=== PATIENT | female | born 1950 | race Caucasian/White ===

== ENCOUNTER 2022-06-01 12:38 | Observation (INO) | payer MEDICARE ==
[2022-06-01] MEDS ORDERED: ASPIRIN 81 MG PO STA (12:53)
[2022-06-01] MEDS ORDERED: NITROGLYCERIN OINT 1 INCH/GM PACKET TOPICAL STA (12:53)
--- NOTE | 2022-06-01 12:55 | ED ---
General Adult HPI - General Chief complaint: Chest Pain Stated complaint: chest pain, dizziness Time Seen by Provider: 06/01/22 12:49 Source: patient, RN notes reviewed Mode of arrival: wheelchair Limitations: no limitations - History of Present Illness Initial comments: Patient is a pleasant 71-year-old female presenting to the emergency department with concerns of chest discomfort. Onset of symptoms was close to 2 weeks ago. Symptoms are exertional. Symptoms become moderate at times however is mild now. Patient does describe discomfort as pressure. Patient had mild nausea and mild associated dyspnea today. Patient has felt lightheaded and near syncopal associate it with this. No diaphoresis. No history of similar symptoms previous sleep. Patient does have strong family history of cardiac disease. - Related Data Home Medications Medication Instructions Recorded Confirmed Atorvastatin [Lipitor] 20 mg PO PC-SUPPER 06/01/22 06/01/22 Escitalopram [Lexapro] 10 mg PO DAILY 06/01/22 06/01/22 Ibuprofen [Advil] 400 mg PO BID PRN 06/01/22 06/01/22 LORazepam [Ativan] 0.25 mg PO HS 06/01/22 06/01/22 Lansoprazole [Prevacid] 30 mg PO DAILY 06/01/22 06/01/22 Valsartan [Diovan] 160 mg PO DAILY 06/01/22 06/01/22 atenoloL [Tenormin] 25 mg PO DAILY 06/01/22 06/01/22 glipiZIDE [Glucotrol] 5 mg PO DAILY 06/01/22 06/01/22 metFORMIN HCL ER [Glucophage XR] 500 mg PO PC-SUPPER 06/01/22 06/01/22 Allergies Allergy/AdvReac Type Severity Reaction Status Date / Time azithromycin AdvReac Rash/Hives Verified 06/01/22 14:47 cephalexin [From Keflex] AdvReac Rash/Hives Verified 06/01/22 14:47 codeine AdvReac Rash/Hives Verified 06/01/22 14:47 Penicillins AdvReac Hand Verified 06/01/22 14:47 Swelling tetracycline AdvReac Rash/Hives Verified 06/01/22 14:47 Review of Systems ROS Statement: Those systems with pertinent positive or pertinent negative responses have been documented in the HPI. ROS Other: All systems not noted in ROS Statement are negative. Constitutional: Denies: fever Eyes: Denies: eye pain ENT: Denies: ear pain Respiratory: Denies: cough Cardiovascular: Reports: as per HPI, chest pain Endocrine: Reports: fatigue Gastrointestinal: Reports: nausea Genitourinary: Denies: dysuria Musculoskeletal: Denies: back pain Skin: Denies: rash Neurological: Denies: weakness Past Medical History Past Medical History: Diabetes Mellitus, Hyperlipidemia, Hypertension History of Any Multi-Drug Resistant Organisms: None Reported Past Surgical History: No Surgical Hx Reported Past Psychological History: Anxiety Smoking Status: Never smoker Past Alcohol Use History: None Reported Past Drug Use History: None Reported General Exam Limitations: no limitations General appearance: alert, in no apparent distress Head exam: Present: normocephalic Eye exam: Present: normal appearance Neck exam: Present: normal inspection Respiratory exam: Present: normal lung sounds bilaterally. Absent: chest wall tenderness Cardiovascular Exam: Present: regular rate, normal rhythm Expanded Peripheral pulses: 2+: Radial (R), Radial (L), Posterior Tibialis (R), Posterior Tibialis (L) GI/Abdominal exam: Present: soft. Absent: distended, tenderness Extremities exam: Present: normal inspection. Absent: pedal edema, calf tenderness Neurological exam: Present: alert Psychiatric exam: Present: normal affect, normal mood Skin exam: Present: normal color Course Vital Signs 06/01/22 12:43 Temperature 98.5 F Pulse Rate 79 Respiratory 16 Rate Blood Pressure 152/74 O2 Sat by Pulse 97 Oximetry EKG Findings - EKG Results: EKG: interpreted by ERMD (PVC present), sinus rhythm, normal axis, normal QRS, normal ST/T Medical Decision Making - Medical Decision Making Patient reevaluated. Patient and family updated. Case was discussed with Dr. angeles, who will admit covering hospital call. Was pt. sent in by a medical professional or institution? @ n Did you speak to anyone other than the patient for history? @Family help provide history Did you review nursing and triage notes? @Nursing notes reviewed and agree Were old charts reviewed? @ n Differential Diagnosis? @ MDM Differential Chest Pain: Stable Angina, Unstable Angina, STEMI, NSTEMI Aortic Dissection, Pneumothorax, Musculoskeletal, Esophageal Spasm GERD, Cholecystitis, Pancreatitis, Zoster This is not meant to be an all-inclusive list. EKG interpreted by me (3pts min.)? @Yes X-rays interpreted by me (1pt min.)? @ y CT interpreted by me (1pt min.)? @ n U/S interpreted by me (1pt. min.)? @ n What testing was considered but not performed? (CT, X-rays, U/S, labs)? Why? @ n What meds were considered but not given? Why? @Aspirin and Nitropaste ordered. Did you discuss the management of the patient with other professionals? @Discussed with Dr. lipscomb, who will admit. Did you reconcile home meds? @Not entered yet Was smoking cessation discussed for >3mins.? @ n Was critical care preformed (if so, how long)? @ n Were there social determinants of health that impacted care today? How? (Homelessness, low income, unemployed, alcoholism, drug addiction, transportation, low edu. Level, literacy, decrease access to med. care, halfway, rehab)? @ n Was there de-escalation of care discussed even if they declined? (Discuss DNR or withdrawal of care, Hospice)? @ n What co-morbidities impacted this encounter? (DM, HTN, Smoking, COPD, CAD, Cancer, CVA, Hep., AIDS, mental health diagnosis, sleep apnea, morbid obesity)? @Patient has strong family history of heart disease Was patient admitted / discharged? @Admitted Undiagnosed new problem with uncertain prognosis? @ Chest pain will need further evaluation Drug Therapy requiring intensive monitoring for toxicity (Heparin, Nitro, Insulin, Cardizem)? @ n Were any procedures done? @ n Diagnosis/symptom? @Chest pain Acute, or Chronic, or Acute on Chronic? @Acute Uncomplicated (without systemic symptoms) or Complicated (systemic symptoms)? @Uncomplicated Side effects of treatment? @ [none] Exacerbation, Progression, or Severe Exacerbation] @ [no] Poses a threat to life or bodily function? @Potential threat, will need further evaluation - Lab Data Result diagrams: 06/01/22 13:08 06/01/22 13:08 Lab Results 06/01/22 06/01/22 06/01/22 Range/Units 13:08 13:08 13:08 WBC 7.5 (3.8-10.6) k/uL RBC 4.19 (3.80-5.40) m/uL Hgb 12.5 (11.4-16.0) gm/dL Hct 37.6 (34.0-46.0) % MCV 89.7 (80.0-100.0) fL MCH 29.8 (25.0-35.0) pg MCHC 33.3 (31.0-37.0) g/dL RDW 14.2 (11.5-15.5) % Plt Count 178 (150-450) k/uL MPV 7.7 Neutrophils % 62 % Lymphocytes % 29 % Monocytes % 5 % Eosinophils % 2 % Basophils % 0 % Neutrophils # 4.6 (1.3-7.7) k/uL Lymphocytes # 2.2 (1.0-4.8) k/uL Monocytes # 0.4 (0-1.0) k/uL Eosinophils # 0.1 (0-0.7) k/uL Basophils # 0.0 (0-0.2) k/uL PT 10.4 (9.0-12.0) sec INR 1.0 (<1.2) APTT 22.5 (22.0-30.0) sec D-Dimer 0.89 H (<0.60) mg/L FEU Sodium 140 (137-145) mmol/L Potassium 4.2 (3.5-5.1) mmol/L Chloride 104 (98-107) mmol/L Carbon Dioxide 24 (22-30) mmol/L Anion Gap 12 mmol/L BUN 20 H (7-17) mg/dL Creatinine 0.67 (0.52-1.04) mg/dL Est GFR (CKD-EPI)AfAm >90 (>60 ml/min/1.73 sqM) Est GFR (CKD-EPI)NonAf >90 (>60 ml/min/1.73 sqM) Glucose 170 H (74-99) mg/dL Calcium 9.3 (8.4-10.2) mg/dL Magnesium 1.6 (1.6-2.3) mg/dL Total Bilirubin 0.4 (0.2-1.3) mg/dL AST 44 H (14-36) U/L ALT 37 H (4-34) U/L Alkaline Phosphatase 63 (38-126) U/L Troponin I (0.000-0.034) ng/mL Total Protein 6.8 (6.3-8.2) g/dL Albumin 3.8 (3.5-5.0) g/dL 06/01/22 Range/Units 13:08 WBC (3.8-10.6) k/uL RBC (3.80-5.40) m/uL Hgb (11.4-16.0) gm/dL Hct (34.0-46.0) % MCV (80.0-100.0) fL MCH (25.0-35.0) pg MCHC (31.0-37.0) g/dL RDW (11.5-15.5) % Plt Count (150-450) k/uL MPV Neutrophils % % Lymphocytes % % Monocytes % % Eosinophils % % Basophils % % Neutrophils # (1.3-7.7) k/uL Lymphocytes # (1.0-4.8) k/uL Monocytes # (0-1.0) k/uL Eosinophils # (0-0.7) k/uL Basophils # (0-0.2) k/uL PT (9.0-12.0) sec INR (<1.2) APTT (22.0-30.0) sec D-Dimer (<0.60) mg/L FEU Sodium (137-145) mmol/L Potassium (3.5-5.1) mmol/L Chloride (98-107) mmol/L Carbon Dioxide (22-30) mmol/L Anion Gap mmol/L BUN (7-17) mg/dL Creatinine (0.52-1.04) mg/dL Est GFR (CKD-EPI)AfAm (>60 ml/min/1.73 sqM) Est GFR (CKD-EPI)NonAf (>60 ml/min/1.73 sqM) Glucose (74-99) mg/dL Calcium (8.4-10.2) mg/dL Magnesium (1.6-2.3) mg/dL Total Bilirubin (0.2-1.3) mg/dL AST (14-36) U/L ALT (4-34) U/L Alkaline Phosphatase (38-126) U/L Troponin I <0.012 (0.000-0.034) ng/mL Total Protein (6.3-8.2) g/dL Albumin (3.5-5.0) g/dL - Radiology Data Radiology results: report reviewed (Computed tomography scan negative for pulmonary embolism) Interpreted by me: Chest x-ray shows no acute process Disposition Clinical Impression: Chest pain Disposition: ADMITTED IP TO THIS HOSP Is patient prescribed a controlled substance at d/c from ED?: No Referrals: Simon Navarrete MD [Primary Care Provider] - 1-2 days Time of Disposition: 14:50
[2022-06-01 13:22] LABS: Basophils % (A) 0 %; Eosinophils # (A) 0.1 k/uL (0-0.7); Eosinophils % (A) 2 %; HCT 37.6 % (34.0-46.0); HGB 12.5 gm/dL (11.4-16.0); Lymphocytes # (A) 2.2 k/uL (1.0-4.8); Lymphocytes % (A) 29 %; MCH 29.8 pg (25.0-35.0); MCHC 33.3 g/dL (31.0-37.0); MCV 89.7 fL (80.0-100.0); Mean Platelet Volume 7.7; Monocytes # (A) 0.4 k/uL (0-1.0); Monocytes % (A) 5 %; Neutrophils # (A) 4.6 k/uL (1.3-7.7); Neutrophils % (A) 62 %; Platelet Count 178 k/uL (150-450); RBC 4.19 m/uL (3.80-5.40); RDW 14.2 % (11.5-15.5); WBC 7.5 k/uL (3.8-10.6)
[2022-06-01 13:34] LABS: ALT 37 U/L (4-34); AST 44 U/L (14-36); African American GFR (CKD) >90 (>60 ml/min/1.73 sqM); Albumin 3.8 g/dL (3.5-5.0); Alkaline Phosphatase 63 U/L (38-126); Anion Gap 12 mmol/L; Blood Urea Nitrogen 20 mg/dL (7-17); Calcium 9.3 mg/dL (8.4-10.2); Carbon Dioxide 24 mmol/L (22-30); Chloride 104 mmol/L (98-107); Glucose 170 mg/dL (74-99); Magnesium 1.6 mg/dL (1.6-2.3); Non-African American GFR(CKD) >90 (>60 ml/min/1.73 sqM); Potassium 4.2 mmol/L (3.5-5.1); Sodium 140 mmol/L (137-145); Total Bilirubin 0.4 mg/dL (0.2-1.3); Total Protein 6.8 g/dL (6.3-8.2)
[2022-06-01 13:41] LABS: Partial Thromboplastin Time 22.5 sec (22.0-30.0); Prothrombin Time 10.4 sec (9.0-12.0)
--- NOTE | 2022-06-01 13:46 | XR ---
EXAMINATION TYPE: XR chest 2V DATE OF EXAM: 06/01/2022 COMPARISON: NONE HISTORY: Chest Pain TECHNIQUE: Frontal and lateral views of the chest are obtained. FINDINGS: Scattered senescent parenchymal changes noted. No evidence for infiltrate. No evidence for atelectasis. Heart size is stable. Mediastinal structures are stable and grossly unremarkable. No evidence for hilar prominence. Degenerative changes dorsal spine. IMPRESSION: 1. No evidence for acute pulmonary disease.
--- NOTE | 2022-06-01 14:23 | CT ---
EXAMINATION TYPE: CT angio chest DATE OF EXAM: 06/01/2022 COMPARISON: None HISTORY: Chest pain, HTN, family cardiac hx. CT DLP: 362.2 mGycm CONTRAST: CT chest with contrast and 3D reconstruction with MIP imaging is performed with IV Contrast, patient injected with 100 mL of Isovue 370. Contrast-enhanced CT of the chest was performed through the course of the pulmonary arteries with charles g and mediastinal window settings submitted. 3D reconstruction with MIP imaging was also performed. PULMONARY ARTERIES: The pulmonary arteries and their major tributaries are patent. I do not see winston dence for sizable filling defect to suggest pulmonary embolic process. LUNGS: The lungs are clear and free of infiltrate. No evidence for atelectasis. No pulmonary nodule or mass is detected. No pleural effusion. MEDIASTINUM: Thoracic aorta is of normal caliber,however, evaluation is limited given timing of the contrast bolus. If there is concern for thoracic aortic pathology consider PETER. Correlate clinicall y . The heart is not enlarged. No evidence for mediastinal mass. No mediastinal lymph nodes greater than 1cm. HILAR STRUCTURES: No evidence for mass. No hilar lymph nodes greater than 1 cm. UPPER ABDOMEN: No significant abnormality is seen. IMPRESSION: 1. No evidence for Pulmonary embolism at this time.
[2022-06-01] MEDS ORDERED: NITROGLYCERIN SL TABS 0.4 MG TAB SUBLINGUAL PRN (14:52)
[2022-06-01] MEDS ORDERED: LORazepam 0.5 MG TAB PO PRN (15:17)
[2022-06-01] MEDS ORDERED: ATORVASTATIN 20 MG TAB PO SCH (18:30)
[2022-06-01] MEDS: NITROGLYCERIN OINT 1 INCH/GM PACKET TOPICAL SCH ×2 (18:35→23:19)
[2022-06-01] MEDS: HEPARIN SODIUM,PORCINE/PF 5,000 UNIT/0.5 ML SYRINGE SQ SCH (20:40)
[2022-06-01] MEDS ORDERED: ACETAMINOPHEN TAB 325 MG TAB PO PRN (20:56)
--- NOTE | 2022-06-01 21:17 | P.HPIM ---
History of Present Illness This is a pleasant 71 years old female with past medical history of hypertension, hyperlipidemia and diabetes mellitus Patient presents because of chest pain of one week duration, the middle of her chest going to the left about 4-5/10 in severity feels like aching and pressure associated with mild lightheadedness She has little shortness of breath but no coughing, no GI or urinary symptoms, she has some mild headache but no weakness or numbness. She denies smoking alcohol or illicit drugs. Her vitals are stable. Labs reviewed showing unremarkable CBC, BMP. Liver enzymes mildly elevated. D-dimer is slightly elevated at 0.89, CTA of the chest is negative for PE. EKG showing normal sinus rhythm at [address]-T changes patient was started on aspirin and emergency room. Review of Systems Review of systems CONSTITUTIONAL: No fever, no malaise, no fatigue. HEENT: No recent visual problems or hearing problems. Denied any sore throat. CARDIOVASCULAR: No orthopnea, PND, no palpitations, no syncope. PULMONARY: No shortness of breath, no cough, no hemoptysis. GASTROINTESTINAL: No diarrhea, no nausea, no vomiting, no abdominal pain. Normoactive bowel sounds. NEUROLOGICAL: No headaches, no weakness, no numbness. HEMATOLOGICAL: Denies any bleeding or petechiae. GENITOURINARY: Denies any burning micturition, frequency, or urgency. MUSCULOSKELETAL/RHEUMATOLOGICAL: Denies any joint pain, swelling, or any muscle pain. ENDOCRINE: Denies any polyuria or polydipsia. Past Medical History Past Medical History: Diabetes Mellitus, Hyperlipidemia, Hypertension History of Any Multi-Drug Resistant Organisms: None Reported Past Surgical History: No Surgical Hx Reported Past Psychological History: Anxiety Smoking Status: Never smoker Past Alcohol Use History: None Reported Past Drug Use History: None Reported Medications and Allergies Home Medications Medication Instructions Recorded Confirmed Type Atorvastatin [Lipitor] 20 mg PO PC-SUPPER 06/01/22 06/01/22 History Escitalopram [Lexapro] 10 mg PO DAILY 06/01/22 06/01/22 History Ibuprofen [Advil] 400 mg PO BID PRN 06/01/22 06/01/22 History LORazepam [Ativan] 0.25 mg PO HS 06/01/22 06/01/22 History Lansoprazole [Prevacid] 30 mg PO DAILY 06/01/22 06/01/22 History Valsartan [Diovan] 160 mg PO DAILY 06/01/22 06/01/22 History atenoloL [Tenormin] 25 mg PO DAILY 06/01/22 06/01/22 History glipiZIDE [Glucotrol] 5 mg PO DAILY 06/01/22 06/01/22 History metFORMIN HCL ER [Glucophage XR] 500 mg PO PC-SUPPER 06/01/22 06/01/22 History Allergies Allergy/AdvReac Type Severity Reaction Status Date / Time azithromycin AdvReac Rash/Hives Verified 06/01/22 14:47 cephalexin [From Keflex] AdvReac Rash/Hives Verified 06/01/22 14:47 codeine AdvReac Rash/Hives Verified 06/01/22 14:47 Penicillins AdvReac Hand Verified 06/01/22 14:47 Swelling tetracycline AdvReac Rash/Hives Verified 06/01/22 14:47 Physical Exam Vitals: Vital Signs Temp Pulse Resp BP Pulse Ox 06/01/22 12:43 98.5 F 79 16 152/74 97 Intake and Output 06/01/22 06/01/22 06/01/22 06:59 14:59 22:59 Other: Weight 92.986 kg GENERAL: The patient is alert and oriented x3, not in any acute distress. Well developed, well nourished. HEENT: Pupils are round and equally reacting to light. EOMI. No scleral icterus. No conjunctival pallor. Normocephalic, atraumatic. No pharyngeal erythema. No thyromegaly. CARDIOVASCULAR: S1 and S2 present. No murmurs, rubs, or gallops. PULMONARY: Chest is clear to auscultation, no wheezing or crackles. ABDOMEN: Soft, nontender, nondistended, normoactive bowel sounds. No palpable or ganomegaly. MUSCULOSKELETAL: No joint swelling or deformity. EXTREMITIES: No cyanosis, clubbing, or pedal edema. NEUROLOGICAL: Gross neurological examination did not reveal any focal deficits. SKIN: No rashes. no petechiae. Results CBC & Chem 7: 06/01/22 13:08 06/01/22 13:08 Labs: Abnormal Lab Results - Last 24 Hours (Table) 06/01/22 06/01/22 Range/Units 13:08 13:08 D-Dimer 0.89 H (<0.60) mg/L FEU BUN 20 H (7-17) mg/dL Glucose 170 H (74-99) mg/dL AST 44 H (14-36) U/L ALT 37 H (4-34) U/L Assessment and Plan Assessment: Chest pain, rule out cardiac causes Hypertension Diabetes mellitus Hyperlipidemia Obesity with BMI of 32.1 Plan: Continue with aspirin Cardiology consult Check echocardiogram Labs and medication were reviewed.. Continue same treatment. Continue with symptomatic treatment. Resume home medication. Monitor lytes and vitals. DVT and GI prophylaxis. Further recommendations as per clinical course of the patient DVT prophylaxis: Subcutaneous heparin GI Prophylaxis: Pepcid Prognosis is guarded
[2022-06-01] MEDS: FAMOTIDINE 20 MG/2 ML VIAL IV SCH (21:37)
[2022-06-02] MEDS: NITROGLYCERIN OINT 1 INCH/GM PACKET TOPICAL SCH ×2 (05:20→12:00)
[2022-06-02 07:47] VITALS: RESP 18; TEMP 98
[2022-06-02] MEDS ORDERED: atenoloL 25 MG TAB PO SCH (09:00)
[2022-06-02] MEDS ORDERED: glipiZIDE 5 MG TAB PO SCH (09:00)
[2022-06-02] MEDS ORDERED: ESCITALOPRAM 10 MG TAB PO SCH (09:00)
[2022-06-02] MEDS ORDERED: ASPIRIN 325 MG TAB PO SCH (09:00)
[2022-06-02] MEDS ORDERED: VALSARTAN 160 MG TAB PO SCH (09:00)
[2022-06-02 09:12] LABS: African American GFR (CKD) 102.5 (60.0-200.0); BUN/Creat Ratio 23.86 Ratio (12.00-20.00); Blood Urea Nitrogen 16.7 mg/dL (9.0-27.0); Calcium 9.3 mg/dL (8.7-10.3); Carbon Dioxide 26.2 mmol/L (20.0-27.5); Chloride 102 mmol/L (96-109); Chol/HDL Ratio 3.03 Ratio; Glucose 130 mg/dL (70-110); LDL Cholesterol,Calculated 39.4 mg/dL (0.0-131.0); Non-African American GFR(CKD) 88.4 (60.0-200.0); Potassium 4.1 mmol/L (3.5-5.5); Sodium 139 mmol/L (135-145)
--- NOTE | 2022-06-02 09:27 | P.CRDCN ---
History of Present Illness Consult date: 06/02/22 Consult reason: chest pain History of present illness: HISTORY OF PRESENT ILLNESS This is a 71-year-old female with no previous coronary artery disease history but follows with a tool room lathe operator at [facility] for hypertension, hyperlipidemia. Patient also has history of diabetes mellitus type 2, gastroesophageal reflux disease. Patient complains of pressure across her chest has been going on and off for the past couple weeks but now seems to always be there. Most severe area is left side of the sternal border. She sometimes has radiation up into the left side of her neck. Pain does not seem to worsen with exercise. Yesterday she was swimming in the pool and after she was done she was not feeling great but patient's description of symptoms is vague. She has very little chest discomfort at this time. She has a family medical history of 2 brothers having an [place] and CABG and father at age 57 from myocardial infarction. Mother also had cardiomegaly. Patient is a nonsmoker. She last saw her tool room lathe operator 3 months ago. Blood pressure 146/71, heart rate in the 60s and 70s. EKG normal sinus rhythm with PVC Chest x-ray no acute findings CTA of the chest negative for PE CBC is unremarkable. Troponin negative 3. Triglycerides 158, cholesterol 106, LDL 39, HDL 35. AST 44 and ALT 37 Home cardiac medications atenolol 25 mg daily, atorvastatin 20 mg with supper, valsartan 160 mg daily REVIEW OF SYSTEMS Constitutional: No fever, no chills. No weakness, fatigue or lethargy. EENT: No headache. No dizziness. Lungs: No shortness of breath, cough, no sputum production. No wheezing. Cardiovascular: Reports mild chest pain, no lower extremity edema. No palpitations. No paroxysmal nocturnal dyspnea. No orthopnea. No lightheadedness or dizziness. No syncopal episodes. Abdominal: No abdominal pain. No nausea, vomiting. No diarrhea. No constipation. No bloody or tarry stools. No loss of appetite. Genitourinary: No dysuria.. No urinary retention. Musculoskeletal: No myalgias. No muscle weakness, no gait dysfunction, no frequent falls. No back pain. No neck pain. Integumentary: No wounds, no lesions. No rash or pruritus. No unusual bruising. Neurologic: No aphasia. No facial droop. No change in mentation. No head injury. No headache. No paralysis. No paresthesia. Psychiatric: No depression. No anxiety. Endocrine: No abnormal blood sugars. PHYSICAL EXAMINATION Gen: This is a 71-year-old obese female. She is resting in bed appears to be comfortable and in no acute distress. VS: reviewed HEENT: Head is atraumatic, normocephalic. Pupils equal, round. Sclerae is anicteric. NECK: Supple. No JVD. No lymphadenopathy. No thyromegaly. LUNGS: Clear to auscultation. No wheezes or rhonchi. No intercostal retractions. HEART: Regular rate and rhythm. No murmur. ABDOMEN: Soft. Bowel sounds are present. No masses. No tenderness. EXTREMITIES: No pedal edema. No calf tenderness. NEUROLOGICAL: Patient is awake, alert and oriented x3. Cranial nerves 2 through 12 are grossly intact. ASSESSMENT Chest pain with negative troponins, acute coronary syndrome ruled out Hypertension Hyperlipidemia Diabetes mellitus type 2 Gastroesophageal reflux disease PLAN Obtain Cardiolite stress test today Obtain 2-D echocardiogram and Doppler study to assess cardiac structure and function If testing is within normal limits, patient will be cleared from cardiology for discharge home. Thank you kindly for this consultation. Nurse practitioner note has been reviewed, I agree with documented findings and plan of care. Patient was seen and examined. Past Medical History Past Medical History: Diabetes Mellitus, Hyperlipidemia, Hypertension History of Any Multi-Drug Resistant Organisms: None Reported Past Surgical History: No Surgical Hx Reported Past Psychological History: Anxiety Smoking Status: Never smoker Past Alcohol Use History: None Reported Past Drug Use History: None Reported Medications and Allergies Home Medications Medication Instructions Recorded Confirmed Type Atorvastatin [Lipitor] 20 mg PO PC-SUPPER 06/01/22 06/01/22 History Escitalopram [Lexapro] 10 mg PO DAILY 06/01/22 06/01/22 History Ibuprofen [Advil] 400 mg PO BID PRN 06/01/22 06/01/22 History LORazepam [Ativan] 0.25 mg PO HS 06/01/22 06/01/22 History Lansoprazole [Prevacid] 30 mg PO DAILY 06/01/22 06/01/22 History Valsartan [Diovan] 160 mg PO DAILY 06/01/22 06/01/22 History atenoloL [Tenormin] 25 mg PO DAILY 06/01/22 06/01/22 History glipiZIDE [Glucotrol] 5 mg PO DAILY 06/01/22 06/01/22 History metFORMIN HCL ER [Glucophage XR] 500 mg PO PC-SUPPER 06/01/22 06/01/22 History Allergies Allergy/AdvReac Type Severity Reaction Status Date / Time azithromycin AdvReac Rash/Hives Verified 06/01/22 14:47 cephalexin [From Keflex] AdvReac Rash/Hives Verified 06/01/22 14:47 codeine AdvReac Rash/Hives Verified 06/01/22 14:47 Penicillins AdvReac Hand Verified 06/01/22 14:47 Swelling tetracycline AdvReac Rash/Hives Verified 06/01/22 14:47 Physical Exam Vitals: Vital Signs Temp Pulse Pulse Resp BP BP Pulse Ox 06/02/22 07:00 98 F 66 18 146/71 96 06/02/22 03:18 97.8 F 77 17 131/69 97 06/01/22 20:45 98.2 F 62 16 139/77 97 06/01/22 20:00 75 18 06/01/22 12:43 98.5 F 79 16 152/74 97 Intake and Output 06/01/22 06/02/22 06/02/22 22:59 06:59 14:59 Intake Total 620 Balance 620 Intake: Oral 620 Other: Voiding Method Toilet # Voids 1 Weight 92.986 kg Results 06/01/22 13:08 06/02/22 06:17 Cardiac Enzymes 06/01/22 06/01/22 06/01/22 Range/Units 13:08 13:08 16:53 AST 44 H (14-36) U/L Troponin I <0.012 <0.012 (0.000-0.034) ng/mL 06/01/22 Range/Units 19:40 AST (14-36) U/L Troponin I <0.012 (0.000-0.034) ng/mL Coagulation 06/01/22 Range/Units 13:08 PT 10.4 (9.0-12.0) sec APTT 22.5 (22.0-30.0) sec CBC 06/01/22 Range/Units 13:08 WBC 7.5 (3.8-10.6) k/uL RBC 4.19 (3.80-5.40) m/uL Hgb 12.5 (11.4-16.0) gm/dL Hct 37.6 (34.0-46.0) % Plt Count 178 (150-450) k/uL Comprehensive Metabolic Panel 06/01/22 Range/Units 13:08 Sodium 140 (137-145) mmol/L Potassium 4.2 (3.5-5.1) mmol/L Chloride 104 (98-107) mmol/L Carbon Dioxide 24 (22-30) mmol/L BUN 20 H (7-17) mg/dL Creatinine 0.67 (0.52-1.04) mg/dL Glucose 170 H (74-99) mg/dL Calcium 9.3 (8.4-10.2) mg/dL AST 44 H (14-36) U/L ALT 37 H (4-34) U/L Alkaline Phosphatase 63 (38-126) U/L Total Protein 6.8 (6.3-8.2) g/dL Albumin 3.8 (3.5-5.0) g/dL Current Medications Generic Name Dose Route Start Last Admin Trade Name Freq PRN Reason Stop Dose Admin Acetaminophen 650 mg 06/01/22 20:56 06/01/22 21:08 Acetaminophen Tab 325 Mg Tab PO 650 mg Q6HR PRN Administration Fever and/ or Pain Aspirin 325 mg 06/02/22 09:00 Aspirin 325 Mg Tab PO DAILY [facility] Atenolol 25 mg 06/02/22 09:00 Atenolol 25 Mg Tab PO DAILY [facility] Atorvastatin Calcium 20 mg 06/01/22 18:30 06/01/22 18:35 Atorvastatin 20 Mg Tab PO 20 mg PC-SUPPER MARCUS Administration Escitalopram Oxalate 10 mg 06/02/22 09:00 Escitalopram 10 Mg Tab PO DAILY MARCUS Famotidine 20 mg 06/01/22 21:00 06/01/22 21:37 Famotidine 20 Mg/2 Ml Vial IV 20 mg Q12HR MARCUS Administration Glipizide 5 mg 06/02/22 09:00 Glipizide 5 Mg Tab PO DAILY MARCUS Heparin Sodium (Porcine) 5,000 unit 06/01/22 21:00 06/01/22 20:40 Heparin Sodium,Porcine/Pf 5,000 Unit/0.5 Ml Syringe SQ 5,000 unit Q12HR MARCUS Administration Lorazepam 0.25 mg 06/01/22 15:17 Lorazepam 0.5 Mg Tab PO HS PRN Anxiety Nitroglycerin 0.4 mg 06/01/22 14:52 Nitroglycerin Sl Tabs 0.4 Mg Tab SUBLINGUAL Q5M PRN Chest Pain Nitroglycerin 1 inch 06/01/22 18:00 06/02/22 05:20 Nitroglycerin Oint 1 Inch/Gm Packet TOPICAL Not Given Q6HR MARCUS Sodium Chloride 10 ml 06/01/22 21:00 06/01/22 21:37 Sodium Chloride 0.9% Flush 10 Ml Syringe IV 10 ml BID MARCUS Administration Valsartan 160 mg 06/02/22 09:00 Valsartan 160 Mg Tab PO DAILY MARCUS Intake and Output 06/01/22 06/02/22 06/02/22 22:59 06:59 14:59 Intake Total 620 Balance 620 Intake: Oral 620 Other: Voiding Method Toilet # Voids 1 Weight 92.986 kg 06/01/22 13:08 06/01/22 13:08
[2022-06-02] MEDS: FAMOTIDINE 20 MG/2 ML VIAL IV SCH (10:11)
[2022-06-02] MEDS: HEPARIN SODIUM,PORCINE/PF 5,000 UNIT/0.5 ML SYRINGE SQ SCH (10:12)
[2022-06-02 10:17] VITALS: BP 144/76; PULSE 69
--- NOTE | 2022-06-02 11:23 | NM ---
EXAMINATION TYPE: NM stress cardiolite complete DATE OF EXAM: 06/02/2022 COMPARISON: NONE HISTORY: Pain TECHNIQUE: After the intravenous administration of 10.2 mCi Tc 99m Sestamibi - Rest images obtained 65 minutes post injection. The patient exercised using a EDGAR protocol and 1 minute prior to peak exercise was injected with 25.7 mCi Tc 99m Sestamibi - Stress images obtained 15 minutes post injecti on. FINDINGS: Targeted heart rate was achieved during performance of the study. Review of stress and rest SPECT emely ges demonstrates no distinct perfusion abnormality. Gated analysis shows normal wall motion with an estimated left ventricular ejection fraction of 53 %. IMPRESSION: No scintigraphic evidence for reversible ischemia
--- NOTE | 2022-06-02 12:01 | CA ---
Exercise Stress Test Report Name: Xiao Gutierrez Exam Date: 06/02/2022 09:18 Exam Location: [facility] Ht (in): 67 Wt (lb): 205 BSA: 2.04 Ordering Phys: Shawna Gaviria Referring Phys: SORIN, Technologist: Roger Langston Age: 71 Gender: F : 1950 Procedure CPT: Indications: Reflex order-Stress test ICD-10 Codes: Patient History: CHEST PAIN, DIFFICULTY IN BREATHING, HTN, DIABETIC, ELEVATED CHOLESTEROL LEVELS, FAMILY HX OF HEART DISEASE Medications: Meds past 24 hrs: Pretest Chest Pain: STRESS TEST Jose De Jesus Protocol Exercise Duration (min:sec): 06:[address] Depressions (mm): Angina Score: Blanc Score: Resting HR (bpm): 103 Peak HR (bpm): 136 Resting BP (mmHg): 125 / 74 Peak BP (mmHg): 174 / 67 MPHR: 151 Target HR: 128 % MPHR: 90 METS: 7.1 Total Dose: Peak Dose: Atropine: Double Product: 65511 BP Response: Stress Termination: TARGET HR REACHED/MAX EXERTION Stress Symptoms: NO SYMPTOMS Stress Summary: ECG ANALYSIS Resting ECG: Stress ECG: CONCLUSIONS Excellent exercise tolerance Normal EKG in response to exercise Dr. Linwood Rainey MD (Electronically Signed) Final Date: 02 June 2022 12:00
== END 2022-06-02 14:10 | disposition home or self-care (01) ==
LOC: EC 12:38 → 6NMEDSUR 14:52
PROVIDERS: ADMIT Internal Medicine; ATTEND Internal Medicine
DX: R07.89 Other chest pain (principal); E11.9 Type 2 diabetes mellitus without complications; F41.9 Anxiety disorder, unspecified; I10 Essential (primary) hypertension; E78.5 Hyperlipidemia, unspecified; E66.9 Obesity, unspecified; K21.9 Gastro-esophageal reflux disease without esophagitis; I49.3 Ventricular premature depolarization; Z82.49 Family history of ischemic heart disease and other diseases of the circulatory system; Z79.899 Other long term (current) drug therapy; Z79.84 Long term (current) use of oral hypoglycemic drugs; Z88.1 Allergy status to other antibiotic agents; Z88.5 Allergy status to narcotic agent; Z68.32 Body mass index [BMI] 32.0-32.9, adult; Z88.0 Allergy status to penicillin
CPT/HCPCS: 96372 ×2; 96374; 96376; 99285; 36415; 93005; 93017; 93306; 85379; 80061; 80053; 80048; 83735; 84484; 85025; 85610; 85730; 71046; 71275; 78452; G0378 ×2; A9500; Q9967; J1644 ×2